=== PATIENT | male | born 1960 | race Caucasian/White ===

== ENCOUNTER 2019-08-25 06:26 | Emergency (ER) | payer OTHER ==
[2019-08-25] MEDS ORDERED: MORPHINE 4 MG/ML SYR ONE (06:55)
[2019-08-25] MEDS ORDERED: NA CHLORIDE 0.9% 1,000 ML ONE (06:56)
[2019-08-25] MEDS ORDERED: ONDANSETRON 4 MG/2 ML VIAL ONE (06:56)
[2019-08-25 07:06] LABS: Absolute Lymphocytes (CBC) 1.2 K/uL (0.7-4.9); Basophils % 0.9 % (0-1.3); Hematocrit 40.3 % (39.6-49.0); Lymphocytes % 18.3 % (15.3-44.8); MPV 7.4 fL (7.6-11.3); RBC Red Blood Cell Count 4.55 M/uL (4.33-5.43)
[2019-08-25 07:08] LABS: Urine Blood 2+ (NEG); Urine Glucose NEGATIVE (NEG); Urine Protein NEGATIVE (NEG); Urine pH 5.5 (5.0-7.0)
[2019-08-25 07:15] LABS: Urine Bacteria NONE SEEN /HPF (NONE SEEN); Urine Culture Reflex Order NOT NEEDED; Urine Mucus LIGHT /HPF (NONE SEEN); Urine RBC >50 /HPF (NONE SEEN)
[2019-08-25 07:20] LABS: Albumin 4.2 g/dL (3.4-5.0); Bilirubin Direct 0.2 mg/dL (0-0.2); Bilirubin Total 0.6 mg/dL (0.2-1.0); Potassium 3.6 mmol/L (3.5-5.1); Protein, Total 7.3 g/dL (6.4-8.2)
--- NOTE | 2019-08-25 07:34 | RAD REPORT ---
EXAM DESCRIPTION: CT - Stone Protocol - 08/25/2019 7:07 am CLINICAL HISTORY: Abdominal pain. Left lower quadrant pain COMPARISON: 2014 TECHNIQUE: Computed axial tomography of the abdomen pelvis was obtained without oral or IV contrast. Lack of IV and oral contrast limits evaluation of solid organs, bowel, and vessels. Coronal reformat fazal images were obtained and reviewed. All CT scans are performed using dose optimization technique as appropriate and may include automated exposure control or mA/KV adjustment according to patient size. FINDINGS: Multiple small, bilateral renal calculi. Mild to moderate left hydronephrosis. A [address] calculus left UVJ. No right hydronephrosis 18 millimeter low-density mass extends off of the righ t kidney. 25 millimeter low-density left renal mass Low-density areas within the liver is nonspecific without IV contrast Spleen, pancreas and adrenals appear grossly normal There is no evidence of diverticulitis. Small umbilical hernia contains fat Mild enlargement of the prostate. Small inguinal hernias contain fat Small to moderate hiatal hernia. Scoliosis IMPRESSION: 3 millimeter calculus left UVJ resulting in mild to moderate left hydronephrosis Low-density renal and hepatic masses are nonspecific without IV contrast. These may represent cysts. Routine ultrasound recommended for further evaluation
[2019-08-25] MEDS ORDERED: TAMSULOSIN 0.4 MG SR CAP ONE (07:48)
[2019-08-25] MEDS ORDERED: KETOROLAC 30 MG/ML INJ ONE (07:49)
--- NOTE | 2019-08-25 08:16 | EDPHYS ---
Physician Documentation [facility] Name: Maciel Evans Age: 58 yrs Sex: Male : 1960 Arrival Date: 08/25/2019 Time: 06:30 Bed 6 Private MD: ED Physician Jung Kendrick HPI: 08/25 06:45 This 58 yrs old Male presents to ER via Ambulatory with complaints of pm1 Abdominal Pain. 06:45 The patient presents with abdominal pain in the left lower quadrant. Onset: The pm1 symptoms/episode began/occurred this morning, at 03:00. The symptoms do not radiate. Associated signs and symptoms: Pertinent positives: nausea, Pertinent negatives: chest pain, diarrhea, dysuria, fever, shortness of breath, vomiting. The symptoms are described as sharp. Modifying factors: The symptoms are alleviated by nothing, the symptoms are aggravated by nothing. Severity of pain: in the emergency department the pain is actually worse. The patient has experienced similar episodes in the past, a few times, today's symptoms are similar, to previous kidney stones. Historical: - Allergies: 06:43 Penicillins; jb4 - Home Meds: 06:43 levothyroxine oral [Active]; Metoprolol Tartrate Oral [Active]; losartan oral oral jb4 [Active]; Norvasc Oral [Active]; - PMHx: 06:43 Kidney stones; Hypertension; colon polyps; Hypothyroidism; jb4 - PSHx: 06:43 Lithotripsy; Heart stents; jb4 - Immunization history:: Adult Immunizations up to date. - Social history:: Smoking status: Patient/guardian denies using tobacco, Patient/guardian denies using alcohol. - Ebola Screening: : No symptoms or risks identified at this time. ROS: 06:45 Constitutional: Negative for fever, chills, and weight loss, Cardiovascular: Negative pm1 for chest pain, palpitations, and edema, Respiratory: Negative for shortness of breath, cough, wheezing, and pleuritic chest pain. 06:45 Back: Negative for injury and pain, : Negative for injury, bleeding, discharge, and swelling, MS/Extremity: Negative for injury and deformity, Skin: Negative for injury, rash, and discoloration, Neuro: Negative for headache, weakness, numbness, tingling, and seizure. 06:45 Abdomen/GI: Positive for abdominal pain, nausea, of the left lower quadrant, Negative for vomiting, diarrhea, constipation. Exam: 06:45 Constitutional: This is a well developed, well nourished patient who is awake, alert, pm1 and in no acute distress. Head/Face: Normocephalic, atraumatic. Neck: Trachea midline, no thyromegaly or masses palpated, and no cervical lymphadenopathy. Supple, full range of motion without nuchal rigidity, or vertebral point tenderness. No Meningismus. Chest/axilla: Normal chest wall appearance and motion. Nontender with no deformity. No lesions are appreciated. Cardiovascular: Regular rate and rhythm with a normal S1 and S2. No gallops, murmurs, or rubs. Normal PMI, no JVD. No pulse deficits. Respiratory: Lungs have equal breath sounds bilaterally, clear to auscultation and percussion. No rales, rhonchi or wheezes noted. No increased work of breathing, no retractions or nasal flaring. 06:45 Back: No spinal tenderness. No costovertebral tenderness. Full range of motion. Skin: Warm, dry with normal turgor. Normal color with no rashes, no lesions, and no evidence of cellulitis. MS/ Extremity: Pulses equal, no cyanosis. Neurovascular intact. Full, normal range of motion. 06:45 Abdomen/GI: Inspection: abdomen appears normal, Bowel sounds: normal, Palpation: soft, mild abdominal tenderness, in the left lower quadrant, mass, is not appreciated, rebound tenderness, is not appreciated. 06:45 Neuro: Orientation: is normal, Motor: is normal, moves all fours. Vital Signs: 06:43 BP 126 / 86; Pulse 67; Resp 16; Temp 97.6(TE); Pulse Ox 100% on R/A; Weight 88 kg (R); jb4 Height 5 ft. 9 in. (175.26 cm) (R); Pain 6/10; 08:30 BP 124 / 80; Pulse 67; Resp 16; Temp 97.7; Pulse Ox 100% on R/A; Pain 3/10; sg 06:43 Body Mass Index 28.65 (88.00 kg, 175.26 cm) jb4 MDM: 06:41 Patient medically screened. pm1 06:47 Data reviewed: vital signs. Data interpreted: Pulse oximetry: on room air is 100 %. pm1 Interpretation: normal. 08:12 Counseling: I had a detailed discussion with the patient and/or guardian regarding: the pm1 historical points, exam findings, and any diagnostic results supporting the discharge/admit diagnosis, lab results, radiology results, the need for outpatient follow up, for definitive care, a urologist, to return to the emergency department if symptoms worsen or persist or if there are any questions or concerns that arise at home. 08:16 Special discussion: I discussed with the patient the need to follow-up with the pm1 PCP/specialist for the noted incidental finding on X-ray/CT scanning. 08/25 06:44 Order name: Basic Metabolic Panel; Complete Time: 07:23 pm1 08/25 06:44 Order name: CBC with Diff; Complete Time: 07:14 pm1 08/25 06:44 Order name: Creatinine for Radiology; Complete Time: 07:23 pm1 08/25 06:44 Order name: Hepatic Function; Complete Time: 07:23 pm1 08/25 06:44 Order name: Lipase; Complete Time: 07:23 pm1 08/25 06:44 Order name: Urine Microscopic Only; Complete Time: 07:23 pm1 08/25 06:44 Order name: IV Saline Lock; Complete Time: 07:02 pm1 08/25 06:44 Order name: CT Stone Protocol; Complete Time: 07:42 pm1 08/25 07:05 Order name: Urine Dipstick--Ancillary (enter results); Complete Time: 07:14 mt 08/25 06:44 Order name: Labs collected and sent; Complete Time: 07:02 pm1 08/25 06:44 Order name: Urine Dipstick-Ancillary (obtain specimen); Complete Time: 07:06 pm1 Administered Medications: 07:06 Drug: Zofran 4 mg Route: IVP; Site: right antecubital; sg 08:00 Follow up: Response: No adverse reaction; Nausea is decreased sg 07:06 Drug: morphine 4 mg Route: IVP; Site: right antecubital; sg 07:42 Follow up: Response: No adverse reaction; Pain is decreased; RASS: Alert and Calm (0) sg 07:06 Drug: NS 0.9% 1000 ml Route: IV; Rate: 1000 ml; Site: right antecubital; sg 07:51 Drug: Flomax 0.4 mg Route: PO; sg 08:30 Follow up: Response: No adverse reaction sg 07:51 Drug: TORadol - Ketorolac 15 mg Route: IVP; Site: right antecubital; sg 08:30 Follow up: Response: No adverse reaction; Pain is decreased; RASS: Alert and Calm (0) sg Disposition: 08/25/19 08:15 Discharged to Home. Impression: Calculus of kidney with calculus of ureter. - Condition is Stable. - Discharge Instructions: Kidney Stones, Dietary Guidelines to Help Prevent Kidney Stones. - Prescriptions for Tylenol- Codeine #3 300-30 mg Oral Tablet - take 2 tablets by ORAL route every 6 hours As needed; 20 tablet. Zofran 4 mg Oral Tablet - take 1 tablet by ORAL route every 8 hours As needed; 20 tablet. Flomax 0.4 mg Oral Capsule, Sust. Release 24 hr - take 1 capsule by ORAL route once daily 1/2 hour following the same meal each day; 10 capsule. - Medication Reconciliation Form, Thank You Letter, Antibiotic Education, Prescription Opioid Use form. - Follow up: Emergency Department; When: As needed; Reason: Worsening of condition. Follow up: Jensen Tsai MD; When: 2 - 3 days; Reason: Recheck today's complaints, Continuance of care, Re-evaluation by your physician. - Problem is new. - Symptoms have improved. Addendum: 08/27/2019 08:58 Co-signature as Attending Physician, Jung Kendrick MD I agree with the assessment and c davis plan of care. Signatures: Dispatcher [employer] EDAnthony Ferrara RN RN Jung Alegre MD MD cha Marinas, Patrick, [employer] AUDITOR pm1 Gonzalo Block RN RN jb4 Corrections: (The following items were deleted from the chart) 08/25 08:33 08:15 08/25/2019 08:15 Discharged to Home. Impression: Calculus of kidney with calculus sg of ureter. Condition is Stable. Forms are Medication Reconciliation Form, Thank You Letter, Antibiotic Education, Prescription Opioid Use. Follow up: Emergency Department; When: As needed; Reason: Worsening of condition. Follow up: Jensen Tsai; When: 2 - 3 days; Reason: Recheck today's complaints, Continuance of care, Re-evaluation by your physician. Problem is new. Symptoms have improved. pm1
--- NOTE | 2019-08-25 08:16 | ER ---
Nurse's Notes [facility] Name: Maciel Evans Age: 58 yrs Sex: Male : 1960 Arrival Date: 08/25/2019 Time: 06:30 Bed 6 Private MD: Diagnosis: Calculus of kidney with calculus of ureter Presentation: 08/25 06:40 Presenting complaint: Patient states: I woke up at 0300 this morning with nausea and jb4 left lower quadrant pain. Transition of care: patient was not received from another setting of care. Onset of symptoms was August 25, 2019. Risk Assessment: Do you want to hurt yourself or someone else? Patient reports no desire to harm self or others. Initial Sepsis Screen: Does the patient meet any 2 criteria? No. Patient's initial sepsis screen is negative. Does the patient have a suspected source of infection? Yes: Acute abdominal pain. Care prior to arrival: None. 06:40 Method Of Arrival: Ambulatory jb4 06:40 Acuity: JUAN 3 jb4 Historical: - Allergies: 06:43 Penicillins; jb4 - Home Meds: 06:43 levothyroxine oral [Active]; Metoprolol Tartrate Oral [Active]; losartan oral oral jb4 [Active]; Norvasc Oral [Active]; - PMHx: 06:43 Kidney stones; Hypertension; colon polyps; Hypothyroidism; jb4 - PSHx: 06:43 Lithotripsy; Heart stents; jb4 - Immunization history:: Adult Immunizations up to date. - Social history:: Smoking status: Patient/guardian denies using tobacco, Patient/guardian denies using alcohol. - Ebola Screening: : No symptoms or risks identified at this time. Screenin:44 Abuse screen: Denies threats or abuse. Nutritional screening: No deficits noted. jb4 Tuberculosis screening: No symptoms or risk factors identified. Fall Risk None identified. Assessment: 06:47 General: Appears in no apparent distress. uncomfortable, Behavior is calm, cooperative, jb4 appropriate for age. Pain: Complains of pain in left lower quadrant Pain does not radiate. Pain currently is 6 out of 10 on a pain scale. Neuro: Level of Consciousness is awake, alert, obeys commands, Oriented to person, place, time, situation. Cardiovascular: Patient's skin is warm and dry. Respiratory: Airway is patent Respiratory effort is even, unlabored, Respiratory pattern is regular, symmetrical. GI: Abdomen is round non-distended, Bowel sounds present X 4 quads. Abd is soft and non tender X 4 quads. : No deficits noted. No signs and/or symptoms were reported regarding the genitourinary system. EENT: No deficits noted. No signs and/or symptoms were reported regarding the EENT system. Derm: Skin is intact, Skin is pink, warm \T\ dry. Musculoskeletal: Circulation, motion, and sensation intact. Range of motion: intact in all extremities. Vital Signs: 06:43 BP 126 / 86; Pulse 67; Resp 16; Temp 97.6(TE); Pulse Ox 100% on R/A; Weight 88 kg (R); jb4 Height 5 ft. 9 in. (175.26 cm) (R); Pain 6/10; 08:30 BP 124 / 80; Pulse 67; Resp 16; Temp 97.7; Pulse Ox 100% on R/A; Pain 3/10; sg 06:43 Body Mass Index 28.65 (88.00 kg, 175.26 cm) jb4 ED Course: 06:30 Patient arrived in ED. ag3 06:37 Álvaro Green NP is PHCP. pm1 06:37 Jung Kendrick MD is Attending Physician. pm1 06:38 Nurse Practitioner and/or Physician Reed Press Feeder to see patient. sg 06:40 Triage completed. jb4 06:43 Arm band placed on right wrist. jb4 06:44 Patient has correct armband on for positive identification. Bed in low position. Call jb4 light in reach. Side rails up X 1. Pulse ox on. NIBP on. 06:55 Initial lab(s) drawn, by id, sent to lab. Inserted saline lock: 20 gauge in right jb4 antecubital area, using aseptic technique. Blood collected. 07:02 Basic Metabolic Panel Sent. jb4 07:02 CBC with Diff Sent. jb4 07:02 Creatinine for Radiology Sent. jb4 07:02 Hepatic Function Sent. jb4 07:02 Lipase Sent. jb4 07:[address] sg 07:05 Anthony Raymundo, LIZA is Primary Nurse. sg 07:08 CT Stone Protocol In Process Unspecified. EDMS 07:[address] back from [address]. sg 07:51 Nurse Practitioner and/or Physician Reed Press Feeder to see patient. sg 08:14 Jensen Tsai MD is Referral Physician. pm1 08:30 No provider procedures requiring assistance completed. IV discontinued, intact, sg bleeding controlled, No redness/swelling at site. Pressure dressing applied. Administered Medications: 07:06 Drug: Zofran 4 mg Route: IVP; Site: right antecubital; sg 08:00 Follow up: Response: No adverse reaction; Nausea is decreased sg 07:06 Drug: morphine 4 mg Route: IVP; Site: right antecubital; sg 07:42 Follow up: Response: No adverse reaction; Pain is decreased; RASS: Alert and Calm (0) sg 07:06 Drug: NS 0.9% 1000 ml Route: IV; Rate: 1000 ml; Site: right antecubital; sg 07:51 Drug: Flomax 0.4 mg Route: PO; sg 08:30 Follow up: Response: No adverse reaction sg 07:51 Drug: TORadol - Ketorolac 15 mg Route: IVP; Site: right antecubital; sg 08:30 Follow up: Response: No adverse reaction; Pain is decreased; RASS: Alert and Calm (0) Outcome: 08:15 Discharge ordered by MD. pm1 08:30 Discharged to home ambulatory, with family. sg 08:30 Condition: good 08:30 Discharge instructions given to patient, Instructed on discharge instructions, follow up and referral plans. medication usage, safety practices, Demonstrated understanding of instructions, follow-up care, medications, Prescriptions given X 2. 08:33 Patient left the ED. sg Signatures: Dispatcher [employer] EDMS Anthony Raymundo RN RN sg Álvaro Green, DIRECTOR TRANSLATIONAL DIRECTOR TRANSLATIONAL pm1 Gonzalo Block, RN RN jb4 [place] 3
[2019-08-25 08:41] VITALS: BP 126/86; TEMP 97.6; O2SAT 100
== END 2019-08-25 08:33 | disposition home or self-care (01) ==
LOC: ER 06:26
DX: N20.2 Calculus of kidney with calculus of ureter (principal); E03.9 Hypothyroidism, unspecified; I10 Essential (primary) hypertension; Z95.5 Presence of coronary angioplasty implant and graft
CPT/HCPCS: 85025; 80048; 36415; 80076; 83690; 76377; 74176; 96375; 96374; 99284; J7030; J2405; 81003; 81015

== ENCOUNTER 2024-03-09 23:43 | Emergency (ER) | payer BC ==
[2024-03-10 00:22] LABS: Absolute Basophils 0.1 K/uL (0-0.5); Absolute Eosinophils 0.1 K/uL (0-0.5); Absolute Lymphocytes (CBC) 1.2 K/uL (0.7-4.9); Absolute Monocytes 0.6 K/uL (0.1-1.3); Absolute Neutrophil 8.2 K/uL (1.8-8.0); Basophils % 0.8 % (0-1.3); Eosinophils % 1.4 % (0-4.4); Hematocrit 40.5 % (39.6-49.0); Hemoglobin 13.3 g/dL (13.6-17.9); MCH 29.4 pg (27.0-35.0); MCHC 32.9 g/dL (32.0-36.0); MCV 89.2 fL (80-100); MPV 6.9 fL (7.6-11.3); Monocytes % 5.4 % (3.3-12.3); Neutrophils % 80.4 % (41.7-73.7); Platelets 283 thou/uL (152-406); RBC Red Blood Cell Count 4.54 M/uL (4.33-5.43); Red Cell Distribution Width 15.1 % (12.1-15.2)
[2024-03-10] MEDS ORDERED: ONDANSETRON 4 MG/2 ML VIAL ONE (00:25)
[2024-03-10] MEDS ORDERED: KETOROLAC 30 MG/ML INJ ONE (00:25)
[2024-03-10] MEDS ORDERED: MORPHINE 4 MG/ML SYR ONE (00:25)
[2024-03-10 00:33] LABS: Specific Gravity 1.014 (1.005-1.030); Sqamous Epithelial None Seen /HPF (None Seen); Urine Bacteria None Seen /HPF (<20); Urine Bilirubin NEGATIVE (Negative); Urine Blood 1+ (Negative); Urine Clarity Extremely Turbid (Clear); Urine Color Light-Yellow (Yellow); Urine Culture Reflex Order NOT NEEDED; Urine Glucose NEGATIVE (Negative); Urine Ketones NEGATIVE (Negative); Urine Microscopic Reflex YN ORDER UMIC; Urine Mucus 1+ /HPF (None Seen); Urine Nitrite NEGATIVE (Negative); Urine Protein NEGATIVE (Negative); Urine RBC 21-50 /HPF (None Seen); Urine Urobilinogen Normal (Normal); Urine WBC <5 /HPF (<5)
[2024-03-10 00:39] LABS: Albumin 4.1 g/dL (3.4-5.0); Albumin/Globulin Ratio 1.2 (1.1-1.8); Anion Gap 7.6 mEq/L (5.0-15.0); Bilirubin Total 0.4 mg/dL (0.2-1.0); Globulin 3.5 g/dL (2.3-3.5); Potassium 3.6 mEq/L (3.5-5.1); Protein, Total 7.6 g/dL (6.4-8.2)
--- NOTE | 2024-03-10 01:38 | EDPHYS ---
Physician Documentation [facility] Name: Maciel Evans Age: 63 yrs Sex: Male : 1960 Arrival Date: 03/09/2024 Time: 23:43 Bed 2 Private MD: ED Physician Rizwan Martin HPI: 03/10 02:30 This 63 yrs old Male presents to ER via Ambulatory with complaints of Low Back Pain, rt Nausea/Vomiting, Weakness. 02:30 Patient presents to the ED with a right flank pain rating to the right lower quadrant rt starting this morning. Has nausea without vomiting. He does have a history of kidney stones. Of note, the patient does have an appointment with his urologist on Tuesday. Denies other acute complaints at this time, symptoms are moderate in severity, sharp in nature, no other aggravating or alleviating factors.. Historical: - Allergies: 03/09 23:54 PENICILLINS; pf1 - PMHx: 23:54 Kidney stones; Hypothyroidism; Hypertension; Colon Polyps; pf1 - Immunization history:: Adult Immunizations up to date, 3 doses Last tetanus immunization: < 10 years ago Flu vaccine is up to date. - Infectious Disease History:: Denies. - Social history:: Smoking status: Patient denies any tobacco usage or history of. Patient/guardian denies using alcohol, street drugs. - Family history:: not pertinent. ROS: 03/10 02:30 Constitutional: Negative for fever, chills, and weight loss, Cardiovascular: Negative rt for chest pain, palpitations, and edema, Respiratory: Negative for shortness of breath, cough, wheezing, and pleuritic chest pain, MS/Extremity: Negative for injury and deformity, Skin: Negative for injury, rash, and discoloration, Neuro: Negative for headache, weakness, numbness, tingling, and seizure, Abdomen/GI: Positive for abdominal pain, nausea and vomiting, Back: Positive for flank pain, Negative for injury or acute deformity, Exam: 02:30 Constitutional: This is a well developed, well nourished patient who is awake, alert, rt and in no acute distress. Head/Face: Normocephalic, atraumatic. Chest/axilla: Normal chest wall appearance and motion. Nontender with no deformity. No lesions are appreciated. Cardiovascular: Regular rate and rhythm with a normal S1 and S2. No gallops, murmurs, or rubs. Normal PMI, no JVD. No pulse deficits. Respiratory: Lungs have equal breath sounds bilaterally, clear to auscultation and percussion. No rales, rhonchi or wheezes noted. No increased work of breathing, no retractions or nasal flaring. Abdomen/GI: Soft, non-tender, with normal bowel sounds. No distension or tympany. No guarding or rebound. No evidence of tenderness throughout. Skin: Warm, dry with normal turgor. Normal color with no rashes, no lesions, and no evidence of cellulitis. MS/ Extremity: Pulses equal, no cyanosis. Neurovascular intact. Full, normal range of motion. Neuro: Awake and alert, GCS 15, oriented to person, place, time, and situation. Cranial nerves II-XII grossly intact. Motor strength 5/5 in all extremities. Sensory grossly intact. Cerebellar exam normal. Normal gait. 02:30 Back: Right costovertebral angle tenderness present, Vital Signs: 03/09 23:47 BP 152 / 93; Pulse 65; Resp 16; Temp 98; Pulse Ox 97% on R/A; Weight 88.45 kg; Height 5 pf1 ft. 9 in. ; Pain 08/09; 03/10 01:48 BP 128 / 84; Pulse 68; Resp 16; Temp 98; Pulse Ox 99% ; rv 03/09 23:47 Body Mass Index 28.80 (88.45 kg, 175.26 cm) pf1 03/09 23:47 Pain Scale: Adult pf1 Elsa Coma Score: 01:48 Eye Response: spontaneous(4). Motor Response: obeys commands(6). Verbal Response: rv oriented(5). Total: 15. MDM: 03/09 23:57 Patient medically screened. rt 03/10 02:30 Differential diagnosis: Ureteral stone, urinary retention, pyelonephritis. Data rt reviewed: vital signs, nurses notes, lab test result(s), radiologic studies. I considered the following discharge prescriptions or medication management in the emergency department Medications were administered in the Emergency Department. See MAR. Independent interpretation of the following test(s) in the Emergency Department CT Scan: My interpretation is Right ureteral stone seen on interpretation of CT scan images. Care significantly affected by the following chronic conditions: Hypertension. Counseling: I had a detailed discussion with the patient and/or guardian regarding the historical points, exam findings, and any diagnostic results supporting the discharge/admit diagnosis, lab results, radiology results, the need for outpatient follow up, to return to the emergency department if symptoms worsen or persist or if there are any questions or concerns that arise at home. Response to treatment: the patient's symptoms have markedly improved after treatment. 03/10 00:04 Order name: CBC with Diff; Complete Time: 00:40 rt 03/10 00:04 Order name: CMP; Complete Time: 00:40 rt 03/10 00:04 Order name: Lipase; Complete Time: 00:40 rt 03/10 00:04 Order name: Urinalysis w/ reflexes; Complete Time: 00:40 rt 03/10 00:04 Order name: CT Abd/Pelvis - Without Contrast rt 03/10 00:04 Order name: IV Saline Lock; Complete Time: 00:23 rt 03/10 00:04 Order name: Labs collected and sent; Complete Time: 00:23 rt 03/10 00:04 Order name: Bladder Scanner; Complete Time: 00:23 rt Administered Medications: 00:30 Drug: Ondansetron IVP 4 mg IVP once; over 2 minutes Route: IVP; Site: left antecubital; rv 01:47 Follow up: Response: No adverse reaction rv 00:31 Drug: TORadol - Ketorolac IVP 15 mg IVP once Route: IVP; Site: left antecubital; rv 01:47 Follow up: Response: No adverse reaction; Marked relief of symptoms rv 00:31 Drug: morphine IVP or IV 4 mg IVP once over 4 mins Route: IVP; Infused Over: 4 mins; rv Site: left antecubital; 01:47 Follow up: Response: No adverse reaction; Marked relief of symptoms rv Disposition Summary: 03/10/24 01:37 Discharge Ordered Notes: Location: Home rt Problem: new rt Symptoms: have improved rt Condition: Stable rt Diagnosis - Calculus of ureter rt Followup: rt - With: Private Physician - When: 2 - 3 days - Reason: Discharge Instructions: - Discharge Summary Sheet rt - Kidney Stones rt Forms: - Medication Reconciliation Form rt - Antibiotic Education rt - Prescription Opioid Use rt - Patient Portal Instructions rt - Leadership Thank You Letter rt Prescriptions: - acetaminophen-codeine 300-30 mg Oral tablet - take 1 tablet ORAL route every 6 hours as needed for pain; 15 tablet; Refills: rt 0, Product Selection Permitted - ondansetron 4 mg Oral Tablet,disintegrating - take 1 tablet ORAL route every 6 hours as needed for nausea; 15 tablet; rt Refills: 0, Product Selection Permitted Signatures: Dispatcher [employer] EDMS Alfredo Pittman RN RN rv Rizwan Martin MD MD rt Nohemi Griggs RN RN pf1 Corrections: (The following items were deleted from the chart) 03/09 23:55 23:54 PMHx: Bladder cancer (Colon Polyps); pf1 pf1 23:55 23:54 PSHx: turmor removed from bladder (Colon Polyps); pf1 pf1 03/10 00:05 00:05 CBC+H.LAB.BRZ ordered. EDMS EDMS 00:05 00:05 COMPREHENSIVE METABOLIC PANEL+C.LAB.BRZ ordered. EDMS EDMS 00:05 00:05 LIPASE+C.LAB.BRZ ordered. EDMS EDMS 00:05 00:05 Urinalysis+U.LAB.BRZ ordered. EDMS EDMS
--- NOTE | 2024-03-10 01:38 | ER ---
Nurse's Notes [facility] Name: Maciel Evans Age: 63 yrs Sex: Male : 1960 Arrival Date: 03/09/2024 Time: 23:43 Bed 2 Private MD: Diagnosis: Calculus of ureter Presentation: 03/09 23:47 Chief complaint: Patient states: right flank pain of 10 that radiates to RLQ and groin pf1 region with nausea nd vomiting, onset this AM. Patient stated history of kidney stones and has a follow up [facility]. Coronavirus screen: Client denies travel out of the [place] in the last 14 days. At this time, the client does not indicate any symptoms associated with coronavirus-19. Ebola Screen: Patient negative for fever greater than or equal to 101.5 degrees Fahrenheit, and additional compatible Ebola Virus Disease symptoms. Initial Sepsis Screen: Does the patient meet any 2 criteria? No. Patient's initial sepsis screen is negative. Does the patient have a suspected source of infection? No. Patient's initial sepsis screen is negative. Risk Assessment: Do you want to hurt yourself or someone else? Patient reports no desire to harm self or others. Onset of symptoms was March 09, 2024. 23:47 Method Of Arrival: Ambulatory pf1 23:47 Acuity: JUAN 3 pf1 Triage Assessment: 03/10 00:00 General: Appears in no apparent distress. uncomfortable, well groomed, well developed, pf1 Behavior is cooperative, appropriate for age, anxious, quiet. Pain: Complains of pain in back and abdomen that radiates to right groin. GI: Reports nausea, vomiting. : Reports history of kidney stones. Historical: - Allergies: 03/09 23:54 PENICILLINS; pf1 - PMHx: 23:54 Kidney stones; Hypothyroidism; Hypertension; Colon Polyps; pf1 - Immunization history:: Adult Immunizations up to date, 3 doses Last tetanus immunization: < 10 years ago Flu vaccine is up to date. - Infectious Disease History:: Denies. - Social history:: Smoking status: Patient denies any tobacco usage or history of. Patient/guardian denies using alcohol, street drugs. - Family history:: not pertinent. Screenin/11 00:00 [facility] ED Fall Risk Assessment (Adult) History of falling in the last 3 months, lg3 including since admission No falls in past 3 months (0 pts) Confusion or Disorientation No (0 pts) Intoxicated or Sedated No (0 pts) Impaired Gait No (0 pts) Mobility Assist Device Used No (0 pt) Altered Elimination No (0 pt) Score/Fall Risk Level 0 - 2 = Low Risk Oriented to surroundings, Maintained a safe environment, Educated pt \T\ family on fall prevention, incl call for assistance when getting out of bed, Assessed \T\ reinforced patient's understanding of fall precautions. Abuse screen: Denies threats or abuse. Denies injuries from another. Nutritional screening: No deficits noted. Tuberculosis screening: No symptoms or risk factors identified. Assessment: 00:00 General: Appears in no apparent distress. uncomfortable, Behavior is calm, cooperative. lg3 Pain: Complains of pain in right flank Pain radiates to right lower quadrant. Neuro: No deficits noted. Mahmood Agitation-Sedation Scale (RASS): 0 - Alert and Calm Level of Consciousness is awake, alert, obeys commands, Oriented to person, place, time, situation. Cardiovascular: No deficits noted. Denies chest pain, shortness of breath, Capillary refill < 3 seconds Clubbing of nail beds is absent JVD is absent Patient's skin is warm and dry. Respiratory: No deficits noted. Airway is patent Respiratory effort is even, unlabored, Respiratory pattern is regular, symmetrical. GI: No deficits noted. Abdomen is round non-distended, Bowel sounds present X 4 quads. Reports lower abdominal pain, cramping, nausea. : Reports cramping, inability to void, pain flank(s), lower quadrant(s). EENT: No deficits noted. No signs and/or symptoms were reported regarding the EENT system. Derm: No deficits noted. No signs and/or symptoms reported regarding the dermatologic system. Skin is intact, is healthy with good turgor, Skin is dry, Skin is normal, Skin temperature is warm. Musculoskeletal: No deficits noted. Circulation, motion, and sensation intact. Range of motion: intact in all extremities. Vital Signs: 03/09 23:47 BP 152 / 93; Pulse 65; Resp 16; Temp 98; Pulse Ox 97% on R/A; Weight 88.45 kg; Height 5 pf1 ft. 9 in. ; Pain 08/09; 03/10 01:48 BP 128 / 84; Pulse 68; Resp 16; Temp 98; Pulse Ox 99% ; rv 03/09 23:47 Body Mass Index 28.80 (88.45 kg, 175.26 cm) pf1 03/09 23:47 Pain Scale: Adult pf1 [place] Coma Score: 01:48 Eye Response: spontaneous(4). Motor Response: obeys commands(6). Verbal Response: rv oriented(5). Total: 15. ED Course: 03/09 23:47 Patient arrived in ED. gm2 23:50 Rizwan Martin MD is Attending Physician. rt 23:54 Triage completed. pf1 03/10 00:00 Felipa Stephenson, LIZA is Primary Nurse. lg3 00:00 Patient has correct armband on for positive identification. Placed in gown. Bed in low lg3 position. Call light in reach. Side rails up X 1. Client placed on continuous cardiac and pulse oximetry monitoring. NIBP monitoring applied. Door closed. Noise minimized. Warm blanket given. 00:31 Arm band placed on right wrist. rv 00:31 Lipase Sent. rv 00:31 CMP Sent. rv 00:31 Urinalysis w/ reflexes Sent. rv 00:31 Initial lab(s) drawn, by me, sent to lab. Urine collected: clean catch specimen, clear, rv Amount Voided: 200mL sent to lab. Inserted saline lock: 20 gauge in left antecubital area, using aseptic technique. Blood collected. 00:32 No provider procedures requiring assistance completed. rv 00:37 CT Abd/Pelvis - Without Contrast In Process Unspecified. EDMS 01:48 IV discontinued, intact, bleeding controlled, No redness/swelling at site. Pressure rv dressing applied. Administered Medications: 00:30 Drug: Ondansetron IVP 4 mg IVP once; over 2 minutes Route: IVP; Site: left antecubital; rv 01:47 Follow up: Response: No adverse reaction rv 00:31 Drug: TORadol - Ketorolac IVP 15 mg IVP once Route: IVP; Site: left antecubital; rv 01:47 Follow up: Response: No adverse reaction; Marked relief of symptoms rv 00:31 Drug: morphine IVP or IV 4 mg IVP once over 4 mins Route: IVP; Infused Over: 4 mins; rv Site: left antecubital; 01:47 Follow up: Response: No adverse reaction; Marked relief of symptoms rv Medication: 00:31 VIS not applicable for this client. rv Outcome: 01:37 Discharge ordered by . rt 01:48 Discharged to home ambulatory, rv 01:48 Condition: good 01:48 Discharge instructions given to patient, Instructed on discharge instructions, follow up and referral plans. medication usage, Demonstrated understanding of instructions, follow-up care, medications, Prescriptions given X 2, 01:48 Patient left the ED. rv Signatures: Dispatcher [employer] EDMS lAfredo Pittman RN RN rv Felipa Stephenson RN RN lg3 Rizwan Martin MD MD rt Nohemi Griggs RN RN pf1 Connie Smallwood 2 Corrections: (The following items were deleted from the chart) 03/09 23:55 23:54 PMHx: Bladder cancer (Colon Polyps); pf1 pf1 23:55 23:54 PSHx: turmor removed from bladder (Colon Polyps); pf1 pf1
[2024-03-10 02:15] VITALS: BP 128/84; TEMP 98; O2SAT 99
--- NOTE | 2024-03-12 10:27 | RAD REPORT ---
EXAM DESCRIPTION: Abdomen Pelvis Wo Contrast CLINICAL HISTORY: R flank pain COMPARISON: CT ABDOMEN PELVIS 08/25/2019. TECHNIQUE: Contiguous axial images of the abdomen and pelvis were obtained after the administration of intravenous contrast followed by reconstruction images.This exam was performed according to our de partmental dose-optimization program, which includes automated exposure control, adjustment of the mA and/or kV according to patient size and/or use of iterative reconstruction technique. FINDINGS: There is a calcified pulmonary nodule within the right lung. There is elevation of the rig ht hemidiaphragm. There is a hiatal hernia. The right kidney demonstrates hydronephrosis due to a 5.6 mm stone within the distal ureter. There is an additional 5 x 2 mm stone at the distal ureter proximal to the above-described renal stone. Addit ional nonobstructive stones noted within the kidneys. There are bilateral renal cysts, largest one me asuring 6 cm. No follow-up imaging recommended. Appendix was not visualized. Calcifications within th e pelvis compatible with phleboliths. There are multiple small hepatic cysts, no follow-up recommende d. There is scoliosis of the thoracolumbar spine. The liver, spleen, pancreas and kidneys are otherwise within normal limits. The gallbladder is unrema rkable by CT criteria. Adrenal glands are within normal limits. Aorta is of normal caliber and taperi ng. There is no free fluid in the abdomen or pelvis. There is no bowel obstruction. There is no stran ding of the mesenteric fat to suggest an inflammatory response. IMPRESSION: Right hydronephrosis due to a 5.6 mm stone within the distal ureter. There is an additio nal 5 x 2 mm stone at the distal ureter proximal to the above-described renal stone. Electronically signed by: Tr Davison MD 03/10/2024 01:10 AM CDT Due to temporary technical issues with the PACS/Fluency reporting system, reports are being signed by the in house radiologist without review as a courtesy to ensure prompt reporting. The interpreting r adiologist is fully responsible for the content of the report.
== END 2024-03-10 01:48 | disposition home or self-care (01) ==
LOC: ER 23:43
DX: N20.1 Calculus of ureter (principal); Z87.442 Personal history of urinary calculi; Z88.0 Allergy status to penicillin
CPT/HCPCS: 36415; 74176; 80053; 81001; 83690; 85025; 96374; 96375; 99284; J2405